=== PATIENT | female | born 1940 | race Two or more races ===

== ENCOUNTER → 2016-09-04 | Outpatient (CLI) | payer MEDICARE, OTHER ==
[~2016-09-04] MED LIST: ALEN70TA30 PO; ASPI325T32 PO; ATOR20TA65 PO; BACTDS PO; CELE-54 PO; CEPH-443 PO; DOCU-144 PO; HYDR-3498 PO; LEVO88TA3 PO; LOSA25TA5 PO; LYRI25 PO; PANT40TA4 PO
--- NOTE | 2016-09-04 12:02 | RADRPT ---
PROCEDURE: XR right knee. CLINICAL INDICATION: Knee pain. TECHNIQUE: AP weightbearing, lateral weightbearing and sunrise views are available for review. COMPARISON: 06/09/2016 FINDINGS: There is a total knee replacement. There is no evidence of loosening of the prosthesis. The osseous structures are normal in mineralization, architecture and alignment No acute fracture or dislocation is seen.No osseous lesions are identified. The soft tissues are unremarkable . IMPRESSION: Unremarkable total knee replacement. RPTAT: [facility] .Darrick Mckeon MD, MD Date Time Electronically viewed and signed by .Darrick Mckeon MD, on 09/04/2016 12:02 .B/
== END | disposition home or self-care (01) ==
LOC: HKI 09:25
PROVIDERS: ATTEND Orthopaedic Surgery
DX: Z47.1 Aftercare following joint replacement surgery (principal); Z96.651 Presence of right artificial knee joint
CPT/HCPCS: 73562; G0463